=== PATIENT | female | born 1935 | race Hispanic/Latino ===

== ENCOUNTER 2022-03-24 14:35 | Outpatient (RCR) | payer OTHER | END 2022-03-28 | LOC: RESP 14:35 | PROVIDERS: ATTEND Student in an Organized Health Care Education/Training Program | DX: J84.112 Idiopathic pulmonary fibrosis (principal) | CPT/HCPCS: 94799 ==

== ENCOUNTER 2022-07-07 08:40 | Outpatient (RCR) | END 2022-07-29 | LOC: RESP 08:40 | PROVIDERS: ATTEND Student in an Organized Health Care Education/Training Program | DX: J84.112 Idiopathic pulmonary fibrosis (principal) | CPT/HCPCS: 94626 ×2; G0238 ×2 ==

== ENCOUNTER 2022-08-11 10:25 | Outpatient (RCR) | payer OTHER | END 2022-08-26 | LOC: RESP 10:25 | PROVIDERS: ATTEND Student in an Organized Health Care Education/Training Program | DX: R06.00 Dyspnea, unspecified (principal); R09.02 Hypoxemia; J84.112 Idiopathic pulmonary fibrosis; R91.8 Other nonspecific abnormal finding of lung field | CPT/HCPCS: G0238 ==